=== PATIENT | female | born 1995 | race Hispanic/Latino ===

== ENCOUNTER 2019-04-29 11:13 | Inpatient (IN) | payer MEDICAID, SELFPAY ==
[~2019-04-29 11:13] MED LIST: Bupivacaine/Epinephrine 0.25% 30 ML VIAL ONE
[2019-04-29] MEDS ORDERED: hydrALAZINE 20 MG/ML VIAL SLOW IVP PRN ×2 (12:01→14:43)
[2019-04-29 12:23] VITALS: BMI 26.9
--- NOTE | 2019-04-29 12:39 | PDOC.LDHP ---
Labor and Delivery H&P Chief complaint: contractions, abdominal pain, other (vision change, black spots in vision, headaches over last few days, increased LE edema over the last week) HPI: Marcela Juarez is a 24 year old F at 37.4 wks by LMP c/w 10.3 sono who was sent to L&D from clinic for Pre-E work up. She states that over the last 3 days, she has been experiencing dark spots in vision, headaches (previously did not have headaches), increased LE edema with 6 lb weight gain in the last 2 weeks, and epigastric pain. In the clinic, she had 2 elevated BPs, 156/100 and 150/ 102. SVE in clinic was 0/10/-2/med/ant. She states that she has been having rare contractions over the past three days, maybe 2-3 times per day. Denies any vaginal bleeding, loss of fluid or vaginal discharge. On chart review, she had normal BPs at all of her visits. Of note, she was noted to have 3/6 systolic murmur on exam at office visits and it was recommended that she follow up with Cardiology. She had an appointment but was unable to make that appointment. She denies any other complications with this . Current gestational age (weeks): 37 (37.4) Due date: 05/16/19 Dating criteria: last menstrual period, first trimester ultrasound (10.3 wk) Grav: 1 Para: 0 OB History Details: none Current complications: other (hx of systolic murmur) Abnormal US findings: No Current medications: pre- vitamins Previous surgical history: none Allergies/Adverse Reactions: Allergies Allergy/AdvReac Type Severity Reaction Status Date / Time No Known Allergies Allergy Unverified 04/29/19 13:03 Social history: none - Physical Exam Vital signs reviewed and normal: yes (BP 155/86, HR 55, O2 sat 99% on RA) General: NAD, resting Heart: RRR (unable to appreciate systolic murmur) Lungs: nonlabored breathing Abdomen: gravid Extremeties: no edema FHT: category 1 - Vaginal Exam cm dilated: 0 Effacement: 0% Station: -2 - OB Labs Blood type: O RH: positive Antibody Screen: negative HIV: negative RPR: negative 1 hour GCT: negative (118) Rubella: immune - Assessment L&D Assessment: medically indicated induction gest HTN, r/o Pre-eclampsia - Plan Plan: admit to L&D, labor augmentation if indicated -: Marcela Juarez is a 24 year old F at 37.4 wks by LMP c/w 10.3 sono 1) IUP - normal anatomy US - LMP 08/09/18, VANESA 05/16/2019 - taking PNVs - flu 12/20, tdap 02/19 - 1 hr GTT 118 - neg 3T labs - Cat I strip today - vertex with bedside US today 2) Gestational HTN r/o Pre-eclampsia - 2 elevated BPs at OP clinic, 156/100 repeat was 150/106 - 3 day history of scotomas, increase LE edema and weight gain, epigastric pain and HAs - urine dip at clinic 1+ protein - BP on arrival, 155/86, repeat 135/86 - CBC and CMP wnl - Ur Prot/Cr was 1.57 - no severe range pressure and symptoms resolved, will hold off on Mag at this time - admit to L&D and inducing with cytotec for pre-E without severe feature 3) Systolic heart murmur - not appreciate on exam today - scheduled to see Cards during , unable to make appt Addendum - Attending - Attending Attestation Date/Time: 04/29/19 7569 I personally evaluated the patient and discussed the management with Dr. Walker and the rest of the team. I agree with the History, Examination, Assessment and Plan documented above with any addition or exceptions noted below. Preeclampsia without severe features at >37w. Will proceed with cervical ripening. Monitor for s/s of severe disease.
[2019-04-29 13:12] LABS: #Eosinphils 0.1 thou/uL (0.0-0.7); #Lymphocytes 1.9 thou/uL (1.20-3.40); #Monocytes 0.6 thou/uL (0.11-0.59); #Neutrophils 5.4 thou/uL (1.40-6.50); %Basophils 0.3 % (0.0-1.0); %Eosinophils 0.7 % (0.0-10.0); %Monocytes 7.5 % (0.0-10.0); %Neutrophils 67.6 % (42.0-75.0); Hemoglobin 11.6 g/dL (12.0-16.0); Mean Corpuscular HGB CONC 33.5 g/dL (32.0-36.0); Mean Corpuscular Hemoglobin 30.2 pg (27.0-31.0); Mean Corpuscular Volume 90.3 fL (78.0-98.0); RBC Distribution Width 13.8 % (11.5-14.5); Red Blood Cell (RBC) Count 3.83 mill/uL (4.20-5.40)
[2019-04-29 13:24] LABS: ALT (SGPT) 18 U/L (8-55); AST (SGOT) 18 U/L (5-34); Alkaline Phosphatase 408 U/L (40-110); Anion Gap 11 mmol/L (10-20); BUN (Urea Nitrogen) 9 mg/dL (7.0-18.7); Bilirubin, Total 0.2 mg/dL (0.2-1.2); Calc. Creatinine Clearance 122 mL/min (70-130); Calcium 8.1 mg/dL (7.8-10.44); Carbon Dioxide 20 mmol/L (22-29); Chloride 110 mmol/L (98-107); Estimated GFR-MDRD Greater than 90; Globulin 2.8 g/dL (2.4-3.5); Glucose 67 mg/dL (70-105); Protein, Total 5.8 g/dL (6.0-8.3); Sodium 137 mmol/L (136-145)
[2019-04-29 13:34] LABS: Large Platelets SLIGHT; MDiff Complete? YES; Mean Platelet Volume 11.1 fL (7.4-10.4); Platelet Count 160 thou/uL (130-400); Platelet Morphology Comment Appears Adequate; Polychromasia SLIGHT = 2-3 cells (100X) (0-2/hpf)
[2019-04-29 14:12] LABS: Creatinine, Urine 135.47 mg/dL (47-110)
[2019-04-29] MEDS ORDERED: Promethazine HCl 25 MG/ML VIAL IM PRN (14:43)
[2019-04-29] MEDS ORDERED: Ondansetron PF 4 MG/2 ML Vial IVP PRN (14:43)
[2019-04-29 16:02] LABS: Syphilis Antibody Nonreactive (Nonreactive); Syphilis Antibody Index 0.02 S/CO (<1.00 Non-Reactive)
[2019-04-29 16:03] LABS: HBSAg Index 0.31 S/CO (0-0.99); Hep B Surf Ag Non-Reactive S/CO (NonReactive)
[2019-04-29] MEDS: Misoprostol 100 MCG TAB VAG SCH ×2 (16:15→22:02)
[2019-04-29] MEDS ORDERED: Butorphanol Tartrate 1 MG/ML VIAL SLOW IVP PRN (21:40)
[2019-04-29] MEDS ORDERED: Butorphanol Tartrate 1 MG/ML VIAL ONE (21:41)
--- NOTE | 2019-04-29 22:10 | PDOC.BPN ---
<TimSonal Martin - Last Filed: 04/29/19 22:10> - Brief Progress Note 04/29/20191914 Patient seen at 1915, resting in bed and comfortable. She voices no complaints. Denies any headaches, vision changes, shortness of breath, abdominal pain, vaginal bleeding, loss of fluid. She is breathing through contractions. Contractions are occurring about every 2 minutes. Baseline FHR 135. Patient has had 1 elevated BP of 143/76 in past 4 hours. General Appearance: NAD, well-appearing, comfortable Cardiovascular: RRR, no murmur Lungs: CTAB, no wheezing or rhonchi noted Abdomen: soft, non-tender, bowel sounds present Extremities: no edema, pulses present and equal bilaterally 04/29/2019, 2099 Patient states she is feeling very uncomfortable, having lots of pain with frequent contractions. Will try dose of Stadol at this time. Has had 1 severe range pressure of 178/86 but denies any headache, vision disturbances, SOB, abdominal pain, vaginal bleeding. Will continue to monitor pressures. Cervical check at this time is /-3. 24 year old at 37.4 weeks EGA by 10.3 wk sono admitted for Preeclampsia w/ o severe features: # sIUP - normal anatomy US - LMP 08/09/18, VANESA 05/16/2019 - taking PNVs - flu 12/20, tdap 02/19 - 1 hr GTT 118 - neg 3T labs - Cat I strip today - vertex with bedside US today # Gestational HTN with superimposed Pre-eclampsia - has had 1 severe range BP since admission (178/86), avg BPs here have been in 130s systolic/80s diastolic - CBC and CMP wnl - Ur Prot/Cr was 1.57 - will continue to hold off on Mag at this time, will initiate if pt has a 2nd severe range pressure - admitted to L&D and inducing with cytotec for pre-E without severe features -1st cytotec given at 1615 # Hx of Systolic heart murmur - not appreciated on exam today - scheduled to see Cards during , unable to make appt Dispo: Stable, will continue to monitor vitals for any severe range BPs. If has another severe range pressure will initiate Magnesium IV at that time. Next check in approx. 4 hours. <Bailee Brasher - Last Filed: 04/30/19 23:56> Addendum - Attending - Attending Attestation Date/Time: 04/29/19 8823 I personally evaluated the patient and discussed the management with Dr. Dumont I agree with the History, Examination, Assessment and Plan documented above with any addition or exceptions noted below. Doing well. Remains asymptomatic. Normotensive to mild range. 1 severe range since admission. Proteinuria present. Will hold on mag sulfate at this time. s/p miso x 1. Now with frequent and painful contractions. Still 1 cm. Continue IVF hydration. Monitor for pain. Repeat exam in 2 to 4 hours. Consider adding balloon if patient able to tolerate. Discuss pain control options. Xochilt
[2019-04-30] MEDS ORDERED: Butorphanol Tartrate 1 MG/ML VIAL SLOW IVP PRN (01:49)
[2019-04-30] MEDS: Misoprostol 100 MCG TAB VAG SCH (01:50)
--- NOTE | 2019-04-30 04:12 | PDOC.BPN ---
<Sonal Dumont Martin - Last Filed: 04/30/19 04:12> - Brief Progress Note 04/30/2019, 0130 Patient seen in bed, appears restless and uncomfortable. She voices that she is cramping and having bad pain with contractions. She says Stadol dose helped for a few hours but not hurting again. Denies any headaches, vision changes, shortness of breath, vaginal bleeding, loss of fluid. Contractions are still occurring about every 1-2 minutes. Baseline FHR 140. Patient has had avg BP of 130s-140s systolic/80s diastolic in past 4 hours. General Appearance: NAD, well-appearing, appears uncomfortable 2/2 contractions Cardiovascular: RRR, no murmur Lungs: CTAB, no wheezing or rhonchi noted Abdomen: soft, non-tender, bowel sounds present Extremities: no edema, pulses present and equal bilaterally SVE: 1thick/-3 @ 0130 24 year old at 37.4 weeks EGA by 10.3 wk sono admitted for Preeclampsia w/ o severe features: # sIUP - normal anatomy US - LMP 08/09/18, VANESA 05/16/2019 - taking PNVs - flu 12/20, tdap 02/19 - 1 hr GTT 118 - neg 3T labs - Cat I strip today - vertex with bedside US today - Stadol ordered for pain mgmt # Gestational HTN with superimposed Pre-eclampsia - has had 1 severe range BP since admission (178/86), avg BPs here have been in 130s systolic/80s diastolic - CBC and CMP wnl - Ur Prot/Cr was 1.57 - will continue to hold off on Mag at this time, will initiate if pt has a 2nd severe range pressure - admitted to L&D and inducing with cytotec for pre-E without severe features -1st cytotec given at 1615 -SVE exams: /-3 @ 2099/03 @ 0130 -will consider placing balloon at next check # Hx of Systolic heart murmur - not appreciated on exam today - scheduled to see Cards during , unable to make appt Dispo: Stable, will continue to monitor vitals for any severe range BPs. If has another severe range pressure will initiate Magnesium IV at that time. Next check in approx. 4 hours, will consider placing balloon at that time. <Bailee Brasher - Last Filed: 04/30/19 23:59> Addendum - Attending - Attending Attestation Date/Time: 04/30/19 2535 I personally evaluated the patient and discussed the management with Dr. Dumont I agree with the History, Examination, Assessment and Plan documented above with any addition or exceptions noted below. Remains asymptomatic related to preE. BP remain stable. No other severe range. No need for mag ppx at this time. Continue to monitoring. SVE unchanged. Painful contractions still present. Patient uncomfortable. Discussed pain control options. Discussed Cooks balloon. Cat 1 tracing. Will continue to monitor. Follow up in 1 to 2 hours to discuss patient's decision on balloon. Xochilt
[2019-04-30] MEDS: Lactated Ringer's 1,000 ML IV SCH ×2 (06:00→15:49)
[2019-04-30] MEDS ORDERED: Fentanyl 4 mcg/Bup 0.1% Cadd 100 ML ONE ×2 (06:07→15:23)
[2019-04-30] MEDS ORDERED: NS w/ Oxytocin 10 units 500 ML IV SCH (06:15)
--- NOTE | 2019-04-30 06:22 | PDOC.BPN ---
<Sonal Dumont - Last Filed: 04/30/19 06:19> - Brief Progress Note 04/30/2019, 529 Patient seen in bed, appears comfortable after recently receiving an additional dose of Stadol. Denies any headaches, vision changes, shortness of breath, abdominal pain vaginal bleeding, loss of fluid. Contractions are still occurring about every 2 minutes. Baseline FHR 140. Patient has had avg BP of 130s-140s systolic/80s diastolic in past 4 hours with no severe range pressures General Appearance: NAD, well-appearing, appears uncomfortable with contractions Cardiovascular: RRR, no murmur Lungs: CTAB, no wheezing or rhonchi noted Abdomen: soft, non-tender, bowel sounds present Extremities: no edema, pulses present and equal bilaterally SVE: 1/thick/-3 @ 0530 24 year old at 37.4 weeks EGA by 10.3 wk sono admitted for Preeclampsia w/ o severe features: # sIUP - normal anatomy US - LMP 08/09/18, VANESA 05/16/2019 - taking PNVs - flu 12/20, tdap 02/19 - 1 hr GTT 118 - neg 3T labs - Cat I strip today - vertex with bedside US today - Stadol ordered for pain mgmt - consent obtained for epidural with this check--will place consult for Anesthesia for epidural placement # Gestational HTN with superimposed Pre-eclampsia - has had 1 severe range BP since admission (178/86), avg BPs here have been in 130s systolic/80s diastolic - CBC and CMP wnl - Ur Prot/Cr was 1.57 - will continue to hold off on Mag at this time, will initiate if pt has a 2nd severe range pressure - admitted to L&D and inducing with cytotec for pre-E without severe features -1st cytotec given at 1615 -SVE exams: 1/thick/-3 @ 2100 1/thick/-3 @ 0130 1/thick/-3 @ 0530--balloon placed -will plan to start Pitocin titration after epidural is placed # Hx of Systolic heart murmur - not appreciated on exam today - scheduled to see Cards during , unable to make appt Dispo: Stable, will continue to monitor vitals for any severe range BPs. If has another severe range pressure will initiate Magnesium IV at that time. Desires epidural. Next check in approx. 4 hours, will plan to start Pitocin after epidural is placed. <Bailee Brasher - Last Filed: 05/01/19 00:02> Addendum - Attending - Attending Attestation Date/Time: 04/30/19 0630 I personally evaluated the patient and discussed the management with Dr. Dumont I agree with the History, Examination, Assessment and Plan documented above with any addition or exceptions noted below. Balloon successfully placed. Patient requesting epidural. Repeat exam in 4 hours. Start pitocin once epidural in place. No evidence of progression of preeclampsia. Xochilt
[2019-04-30] MEDS ORDERED: diphenhydrAMINE 50 MG/ML VIAL IVP PRN (06:42)
[2019-04-30] MEDS ORDERED: Lactated Ringer's 500 ML IV PRN (06:42)
[2019-04-30] MEDS ORDERED: Promethazine HCl 25 MG/ML VIAL IM PRN (06:42)
[2019-04-30] MEDS ORDERED: Acetaminophen 325 MG TAB PO PRN (06:42)
[2019-04-30] MEDS ORDERED: Ondansetron PF 4 MG/2 ML Vial IVP PRN (06:42)
[2019-04-30] MEDS ORDERED: Naloxone HCl 0.4 mg/ml Vial IVP PRN ×2 (06:42)
[2019-04-30] MEDS ORDERED: EPHEDRINE 25 MG/5 ML SYRINGE SLOW IVP PRN (06:42)
[2019-04-30] MEDS ORDERED: Communication Order-Pharmacy FS SCH (06:45)
[2019-04-30] MEDS ORDERED: Fentanyl 4 mcg/Bupivacaine 0.1% Cassette 100 ML EPIDURAL SCH (06:45)
--- NOTE | 2019-04-30 12:45 | PDOC.LDPN ---
Labor & Delivery Progress Note - Subjective Subjective: comfortable, no concerns - Objective Vital signs reviewed and normal: yes General: NAD, resting Uterine fundus: non tender SVE: /-3 FHT: category 1 (baseline 130, accels, no deccels, moderate variability) [place] contractions every: 5-6 - Assessment (1) Preeclampsia Code(s): O14.90 - UNSPECIFIED PRE-ECLAMPSIA, UNSPECIFIED TRIMESTER Current Visit: Yes Status: Acute (2) Current Visit: Yes Status: Acute Qualifiers: Weeks of gestation: 37 weeks Qualified Code(s): Z3A.37 - 37 weeks gestation of Plan: pitocin for augmentation -: 24 year old at 37.5wk by 10.3 wk sono admitted for mIOL for Preeclampsia w/ o severe features: #mIOL for preE without severe features - Cat 1 strip, accels, no deccels, moderate variability - /-3 @0530, balloon placed - recheck @ 1100, balloon out, check of -3 - started pit - epidural in place - US by admitting team- vertex #PreE - 1 severe range BP since admission (178/86), others have been 130s/80s - CBC/CMP WNL - Ur Pr/Cr 1.57 - initiate Mag if spies second severe pressure - cont mIOL and monitoring #Hx of Systolic heart murmur - not appreciated on exam today - scheduled to see Cards during , unable to make appt Dispo: Stable, will continue to monitor vitals for any severe range BPs. If has another severe range pressure will initiate Magnesium IV at that time. q4h checks. Cont pit augmentation Addendum - Attending - Attending Attestation Date/Time: 04/30/19 8440 I personally evaluated the patient and discussed the management with Dr. Marinelli. I agree with the History, Examination, Assessment and Plan documented above with any addition or exceptions noted below.
--- NOTE | 2019-04-30 13:28 | PDOC.LDPN ---
Labor & Delivery Progress Note - Subjective Subjective: comfortable, other - Objective Vital signs reviewed and normal: yes Abnormal vital signs: SBPs 150s, no severe range pressures General: NAD, resting Uterine fundus: non tender SVE: 80/-2 FHT: category 1 (baseline 130, accels, no decels, moderate variability), variability present [place] contractions every: 4-5min - Assessment (1) Preeclampsia Code(s): O14.90 - UNSPECIFIED PRE-ECLAMPSIA, UNSPECIFIED TRIMESTER Current Visit: Yes Status: Acute (2) Current Visit: Yes Status: Acute Qualifiers: Weeks of gestation: 37 weeks Qualified Code(s): Z3A.37 - 37 weeks gestation of Plan: pitocin for augmentation -: 24 year old at 37.5wk by 10.3 wk sono admitted for mIOL for Preeclampsia w/ o severe features: #mIOL for preE without severe features - Cat 1 strip, accels, no deccels, moderate variability - /-3 @0530, balloon placed - recheck @ 1100, balloon out, check of /-3 - started pit - Check @ 0120, /-2, cont pit to titrate to contractions - epidural in place - US by admitting team- vertex - plan to recheck in 2hrs with possible AROM at that time #PreE - 1 severe range BP since admission (178/86), current BPs 150s/90s, will cont to monitor closely - CBC/CMP WNL - Ur Pr/Cr 1.57 - initiate Mag if spikes second severe pressure #Hx of Systolic heart murmur - not appreciated on exam today - scheduled to see Cards during , unable to make appt Dispo: Stable, will continue to monitor vitals for any severe range BPs. If has another severe range pressure will initiate Magnesium IV at that time. q2h check. Cont pit augmentation. Possible AROM at next check. Addendum - Attending - Attending Attestation Date/Time: 04/30/19 1686 I personally evaluated the patient and discussed the management with Dr. Marinelli. I agree with the History, Examination, Assessment and Plan documented above with any addition or exceptions noted below.
[2019-04-30] MEDS ORDERED: Magnesium Sulfate 20 gm/500 ml 20 GM/500 ML BAG ONE (15:23)
[2019-04-30] MEDS ORDERED: Calcium Gluc 4.6 MEQ/10 ML (100 MG/ML) SLOW IVP PRN (15:30)
--- NOTE | 2019-04-30 15:35 | PDOC.LDPN ---
Labor & Delivery Progress Note - Subjective Subjective: comfortable, painful contractions - Objective Abnormal vital signs: Spiked second severe range pressure of 162/90. General: NAD, breathing through contractions Uterine fundus: non tender SVE: 100/-1 FHT: category 1 (baseline 130, accels, no deccels, moderate variability) [place] contractions every: 3-4min - Assessment (1) Preeclampsia Code(s): O14.90 - UNSPECIFIED PRE-ECLAMPSIA, UNSPECIFIED TRIMESTER Status: Acute (2) Status: Acute Qualifiers: Weeks of gestation: 37 weeks Qualified Code(s): Z3A.37 - 37 weeks gestation of Plan: continue plan of care, pitocin for augmentation -: 24 year old at 37.5wk by 10.3 wk sono admitted for mIOL for Preeclampsia #mIOL for preE - Cat 1 strip, accels, no deccels, moderate variability, baseline 130 - /-3 @0530, balloon placed - SVE @ 1100, balloon out, check of /-3 - started pit - SVE @ 0120, /-2, cont pit to titrate to contractions - SVE @ 1500, 100/-1 - epidural in place - US by admitting team- vertex - plan to recheck in 1hrs with possible AROM at that time #PreE with severe features - Has now had 2 severe range pressures (178/86 overnight and a recent 162/90) - will start mag now, will cont monitoring closely, will need continued mag 24 hours post delivery with close monitoring - CBC/CMP WNL - Ur Pr/Cr 1.57 #Hx of Systolic heart murmur - not appreciated on exam today - scheduled to see Cards during , unable to make appt Dispo: Stable, now PreE with severe range pressures, starting Mag. Progressing. Recheck in 1hr with possible AROM. Addendum - Attending - Attending Attestation Date/Time: 05/03/19 8180 I personally evaluated the patient and discussed the management with Dr. Marinelli on day of service. I agree with the History, Examination, Assessment and Plan documented above with any addition or exceptions noted below.
[2019-04-30] MEDS ORDERED: Magnesium Sulfate 20 GM/WATER 500 ML BAG IVPB SCH (15:45)
--- NOTE | 2019-04-30 16:57 | PDOC.LDPN ---
Labor & Delivery Progress Note - Subjective Subjective: comfortable, no concerns - Objective Vital signs reviewed and normal: yes (no more severe pressures) General: NAD, resting Uterine fundus: non tender SVE: 8/100/0 FHT: category 1 (accels), variability present (moderate) [place] contractions every: 4-5min AROM: clear fluid - Assessment (1) Preeclampsia Code(s): O14.90 - UNSPECIFIED PRE-ECLAMPSIA, UNSPECIFIED TRIMESTER Status: Acute (2) Status: Acute Qualifiers: Weeks of gestation: 37 weeks Qualified Code(s): Z3A.37 - 37 weeks gestation of Plan: continue plan of care, pitocin for augmentation -: 24 year old at 37.5wk by 10.3 wk sono admitted for mIOL for Preeclampsia #mIOL for preE - Cat 1 strip, accels, no deccels, moderate variability, baseline 130 - 1/thick/-3 @0530, balloon placed - SVE @ 1100, balloon out, check of /-3 - started pit - SVE @ 0120, 80/-2, cont pit to titrate to contractions - SVE @ 1500, 7/100/-1 - SVE @ 1600, 8/100/0 - AROM clear fluid - epidural in place - US by admitting team- vertex - recheck in 1-2 hours, monitoring strip and clinical condition #PreE with severe features - Has now had 2 severe range pressures (178/86 overnight and a recent 162/90) - Now on mag, will cont monitoring closely, will need continued mag 24 hours post delivery with close monitoring - CBC/CMP WNL - Ur Pr/Cr 1.57 #Hx of Systolic heart murmur - not appreciated on exam today - scheduled to see Cards during , unable to make appt Dispo: Stable, now PreE with severe range pressures, on Mag. AROM. Progressing. Addendum - Attending - Attending Attestation Date/Time: 05/03/19 7945 I personally evaluated the patient and discussed the management with Dr. Marinelli on day of service. I agree with the History, Examination, Assessment and Plan documented above with any addition or exceptions noted below.
[2019-04-30] MEDS ORDERED: NS / Oxytocin 40 units/1000ml 1,000 ML ONE (17:12)
[2019-04-30] MEDS ORDERED: NS / Oxytocin 40 units/1000ml 1,000 ML IV PRN (18:22)
--- NOTE | 2019-04-30 18:22 | PDOC.OPDEL ---
OB Operative/Delivery Note Delivery Dr/Surgeon: Yue Marinelli/Curly/Sabrina Pre-Delivery Diagnosis: medically indicated induction Procedure/Post Delivery Dx: spontaneous vaginal delivery Weeks gestation: 37 (37.5) Anesthesia: epidural - Findings A Sex: male - 1 min: 8 - 5 min: 9 - Additional Findings/Plan Placenta delivered: spontaneous Repaired Obstetrical Laceration: vaginal (right) Estimated blood loss: 352cc Compilations/Other Findings: Delivery Physician: Curly Izaguirre Attending: Dr. Bennett Procedure: Spontaneous Vaginal Delivery Anesthesia: Epidural QBL 352cc Pre-op Diagnosis: 1. Term intrauterine in labor 2. PreE with severe features 3. GBS unknown 4. History of systolic murmur, since resolved Post-op Diagnosis: 1. Term intrauterine , delivered 2. same as above Indications: A 24yo presented to L&D for elevated BP, found to have PreE warranting mIOL. Developing preE with severe features during labor. Delivery Note: This is a 24yo @ 37.5wk who delivered a viable M @ 1748. Following an antepartum course complicated by development of preE with severe features features warranting the start of magnesium during labor, a vigorous male was delivered over an intact perineum in the occipitoanterior position. Anterior Shoulder and then remained of the body delivered. No nuchal cord. The head was held down and mouth and nares were bulb suctioned. Cord clamped after delayed cord clamping and cut and cord blood collected. Placenta delivered intact in the [place] presentation with 3 vessel cord. Fundal message was performed and the fundus was firm. The cervix and vagina were inspected and found to have a R vaginal tear and periurethreal tear. The R vaginal tear was then repaired with 3-0 Vicryl in the usual fashion with good approximation and hemostasis. The periurethreal tear was found to be hemostatic. went to nursery in good condition for routine care. Apgars were 8/9. Patient tolerated delivery well. Patient will be monitored in L &D for next 24hours while on Magnesium for PreE with severe features with monitoring of IUP, BP, and clinical status as well as routine care. Post delivery plan: routine recovery Addendum - Attending - Attending Attestation Date/Time: 05/03/19 3637 I was present for the entire delivery and repair.
[2019-04-30] MEDS ORDERED: hydrALAZINE 20 MG/ML VIAL SLOW IVP PRN (18:23)
[2019-04-30] MEDS ORDERED: Adacel (T-DAP) 0.5 ML SYRINGE IM ONE (18:23)
[2019-04-30] MEDS ORDERED: Lanolin Ointment 7 GM TUBE TOP PRN (18:23)
[2019-04-30] MEDS ORDERED: Milk Of Magnesia 30 ML UDCUP PO PRN (18:23)
[2019-04-30] MEDS ORDERED: Bisacodyl 10 MG SUPP PR PRN (18:23)
[2019-04-30] MEDS ORDERED: NS / Oxytocin 40 units/1000ml 1,000 ML IV SCH (18:30)
--- NOTE | 2019-04-30 22:31 | PDOC.BPN ---
<Sonal Dumont - Last Filed: 04/30/19 22:37> - Brief Progress Note S: Patient overall feeling well. Denies any headache, vision changes, shortness of breath, chest pain, abdominal pain, nausea, vomiting. Has had minimal amount of vaginal bleeding after delivery. Complains of some vaginal soreness. O: Vitals: BP 129/82, HR 87, UOP 325 ml in past 4 hours General Appearance: well appearing, resting comfortably in bed Cardiovascular: RRR, no murmurs Lungs: CTAB Abdomen: Soft, nontender, fundus at umbilicus, bowel sounds present Extremities: DTR's 3+ in patellar and 2+ in achilles, no clonus A/P: 24 year old G1 now P1001 on MgSO4 for Pre-Eclampsia #PreE with severe features - No signs/symptoms of Mg toxicity - No severe range or elevated pressures since delivery - Continue Mag for 24 hours post-delivery (~1800 on 05/01) - CBC/CMP WNL - Ur Pr/Cr 1.57 - Provide ice packs for symptomatic relief of vaginal pain/soreness #Hx of Systolic heart murmur - not appreciated on exam today - scheduled to see Cards during , unable to make appt Dispo: Stable, currently on Mag. Will continue to monitor vitals & for signs of Mag toxicity. Next check in approx. 4 hours. <Bailee Brasher - Last Filed: 05/01/19 00:04> Addendum - Attending - Attending Attestation Date/Time: 04/30/19 1291 I personally evaluated the patient and discussed the management with Dr. Dumont I agree with the History, Examination, Assessment and Plan documented above with any addition or exceptions noted below. Doing well. Remains asymptomatic. Tolerating mag sulfate well. Continue at least for 24 hour after delivery. BP stable. Continue to monitor hourly UOP. Repeat exam in 4 hours. Xochilt
[2019-05-01] MEDS: Ibuprofen 800 MG TAB PO SCH ×4 (00:10→23:10)
[2019-05-01] MEDS: Magnesium Sulfate 20 gm/500 ml 20 GM/500 ML BAG IVPB SCH ×2 (00:12→11:18)
--- NOTE | 2019-05-01 04:09 | PDOC.BPN ---
<Sonal Dumont - Last Filed: 05/01/19 04:08> - Brief Progress Note 05/01/2019, 0315 S: Patient overall feeling well. Denies any headache, vision changes, shortness of breath, chest pain, abdominal pain, nausea, vomiting. Has had minimal amount of vaginal bleeding after delivery. O: Vitals: BP 120/74, HR 82, UOP 365 ml in past 4 hours General Appearance: well appearing, resting comfortably in bed Cardiovascular: RRR, no murmurs Lungs: CTAB Abdomen: Soft, nontender, fundus at umbilicus, bowel sounds present Extremities: DTR's 3+ in patellar and 2+ in achilles, no clonus A/P: 24 year old G1 now P1001 on MgSO4 for Pre-Eclampsia #PreE with severe features - No signs/symptoms of Mg toxicity - No severe range or elevated pressures since delivery - Continue Mag for 24 hours post-delivery (~1800 on 05/01) - CBC/CMP WNL - Ur Pr/Cr 1.57 - Provide ice packs for symptomatic relief of vaginal pain/soreness #Hx of Systolic heart murmur - not appreciated on exam today - scheduled to see Cards during , unable to make appt Dispo: Stable, currently on Mag. Will continue to monitor vitals & for signs of Mag toxicity. Next check in approx. 4 hours. <Bailee Brasher - Last Filed: 05/04/19 14:23> Addendum - Attending - Attending Attestation Date/Time: 05/01/19 0619 I personally evaluated the patient and discussed the management with Dr. Dumont I agree with the History, Examination, Assessment and Plan documented above with any addition or exceptions noted below. Agree with current plan. Xochilt
[2019-05-01 06:56] LABS: Hemoglobin 10.8 g/dL (12.0-16.0); Mean Corpuscular HGB CONC 33.6 g/dL (32.0-36.0); Mean Corpuscular Hemoglobin 30.1 pg (27.0-31.0); Mean Corpuscular Volume 89.7 fL (78.0-98.0); Mean Platelet Volume 10.9 fL (7.4-10.4); Platelet Count 106 thou/uL (130-400); White Blood Cell (WBC) Count 13.7 thou/uL (4.8-10.8)
[2019-05-01] MEDS: Lactated Ringer's 1,000 ML IV SCH ×2 (08:03→19:25)
[2019-05-01] MEDS: Docusate Calcium (SURFAK) 240 MG CAP PO SCH ×3 (08:03→23:11)
[2019-05-01] MEDS: Ferrous Sulfate 325 MG TAB PO SCH ×2 (08:04→17:41)
--- NOTE | 2019-05-01 08:40 | PDOC.BPN ---
<Lloyd Marinelli - Last Filed: 05/01/19 08:40> - Brief Progress Note Magnesium Check S: Doing well, no concerns or acute events overnight. No increased WOB, CP, fever/chills, n/v. Pain well-controlled. Bonilla in place. O: BPs 110s-120s/60s-70s General: NAD, resting comfortably HEENT: MMM, EOMI Lungs: CTAB Cards: RRR without murmurs Abd: Soft, appropriately tender, uterus firm at umbilicus Ext: no edema, 2+ reflexes BL UE/LE A/P: 24 year old G1 now P1 who delivered @ 37.5wk on 04/30/19 @ 1525, now on Mg for Pre-Eclampsia with severe features #PreE with severe features - No signs/symptoms of Mg toxicity - No severe range or elevated pressures since delivery - Continue Mag for 24 hours post-delivery (~1800 on 05/01) - CBC/CMP WNL - Ur Pr/Cr 1.57 - Provide ice packs for symptomatic relief of vaginal pain/soreness #Hx of Systolic heart murmur - not appreciated on exam - scheduled to see Cards during , unable to make appt Dispo: Stable, currently on Mag. Will continue to monitor vitals & for signs of Mag toxicity. Next check in approx. 4 hours. <Isaias Bennett - Last Filed: 05/03/19 23:37> Addendum - Attending - Attending Attestation Date/Time: 05/03/19 7057 I personally evaluated the patient and discussed the management with Dr. Marinelli on day of service. I agree with the History, Examination, Assessment and Plan documented above with any addition or exceptions noted below.
--- NOTE | 2019-05-01 09:37 | PDOC.OBPPN ---
FMR OB PN: Subj - Interval History Day: 1 24 y/o @ 37.5 WGA delivered via on 04/30 Pt doing well. Denies H/A, vision changes, SOB, RUQ pain, edema. She reports her abdominal pain is well controlled, but she is having vaginal pain. She is on bedrest while on magnesium, so she has not been ambulating. She is bottle feeding her . FMR OB PN: Obj - Maternal Vital signs: BP: 114/65 HR: 69 RR: 16 Tmax: 98.9 Pox: 99% on RA Wt: 54.431kg - Urine output I&O: 04/30/19 05/01/19 05/02/19 06:59 06:59 06:59 Output Total 433 Balance -433 FMR OB PN: Exam - Physical Exam General: NAD, awake, alert and oriented HEENT: MMM, conjunctiva clear, grossly normal vision, grossly normal hearing Neck: supple, FROM Heart: RRR, no murmurs/rubs/gallops, pulses present, no edema General: CTAB, no respiratory distress, good air movement, no wheezing Abdomen: soft, fundus(cm) (firm below umbilicus) Musculoskeletal: pulses present Neurological: no clonus, no focal deficit Skin: good tugor, capillary refill <2 seconds : appropriately tender Lymphatic: no unusual bruising or bleeding, no purpura Psychiatric: intact recent and remote memory, good judgement and insight FMR OB PN: Data - Labs Lab results: Laboratory Results - last 24 hr 05/01/19 05:40 WBC 13.7 H RBC 3.60 L Hgb 10.8 L Hct 32.3 L MCV 89.7 MCH 30.1 MCHC 33.6 RDW 14.0 Plt Count 106 L MPV 10.9 H FMR OB PN: A/P - Problem List (1) Term delivered Status: Acute Code(s): O80 - ENCOUNTER FOR FULL-TERM UNCOMPLICATED DELIVERY (2) Pre-eclampsia, severe, delivered Status: Acute Code(s): O14.14 - SEVERE PRE-ECLAMPSIA COMPLICATING CHILDBIRTH Disposition: 1. Term , delivered -Cont PNV -Ibuprofen for pain control -Monitor vaginal bleeding -Encouraged breast feeding 2. Pre-eclampsia with severe features Pt on magnesium. No severe range BP's since delivery. UOP 40-125mL/hr. 2+ reflexes bilaterally. -Continue magnesium for 24 hours -Mag checks q4h -Monitor BP's closely -NPO, bedrest Discussion: Date/Time: 05/01/19 2036 This H&P was discussed with Dr. Bennett who agrees with the above documentation and plan. Signature: Lory Rawls MD, PGY-3 Addendum - Attending - Attending Attestation Date/Time: 05/03/19 7824 I personally evaluated the patient and discussed the management with Dr. Rawls on day of service. I agree with the History, Examination, Assessment and Plan documented above with any addition or exceptions noted below.
--- NOTE | 2019-05-01 11:47 | PDOC.BPN ---
- Brief Progress Note S: Doing well, no concerns or questions at this time. Resting comfortably. No increased WOB, CP, fever/chills, n/v. Pain well-controlled. Bonilla in place. O: BPs 116/65, 114/61, 111/63 General: NAD, resting comfortably HEENT: MMM, EOMI Lungs: CTAB Cards: RRR without murmurs Abd: Soft, appropriately tender, uterus firm at umbilicus Ext: no edema, 2+ reflexes BL UE/LE A/P: 24 year old G1 now P1 who delivered @ 37.5wk on 04/30/19 @ 1525, now on Mg for Pre-Eclampsia with severe features #PreE with severe features - No signs/symptoms of Mg toxicity - No severe range or elevated pressures since delivery - Continue Mag for 24 hours post-delivery (~1800 on 05/01) - CBC/CMP WNL - Ur Pr/Cr 1.57 - Provide ice packs for symptomatic relief of vaginal pain/soreness #Hx of Systolic heart murmur - not appreciated on exam - scheduled to see Cards during , unable to make appt Dispo: Stable, currently on Mag. Will continue to monitor vitals & for signs of Mag toxicity. Next check @ approx 1600, will then have been on Mag for approx 24 hours post-.
[2019-05-01] MEDS ORDERED: HYDROcodone/Acetaminophen 5/325 mg Tablet PO SCH (17:30)
[2019-05-01] MEDS: Prenatal Vitamin 1 TAB PO SCH (17:36)
[2019-05-01] MEDS: Misoprostol 100 MCG TAB VAG SCH ×2 (19:30→19:31)
[2019-05-02] MEDS: Ibuprofen 800 MG TAB PO SCH ×4 (06:14→23:03)
--- NOTE | 2019-05-02 08:21 | PDOC.OBPPN ---
FMR OB PN: Subj - Interval History Day: 2 24 y/o @ 37.5 WGA delivered via on 04/30 Pt doing well. Denies H/A, vision changes, SOB, RUQ pain, edema. She reports her abdominal pain is well controlled, but she is having vaginal pain. She has been ambulating without difficulty and tolerating PO. She is bottle feeding her . FMR OB PN: Obj - Maternal Vital signs: BP: 101/55 HR: 63 RR: 16 Tmax: 99.0 Pox: 99% on RA Wt: 54.4kg - Urine output I&O: 05/01/19 05/02/19 05/03/19 06:59 06:59 06:59 Output Total 433 Balance -433 FMR OB PN: Exam - Physical Exam General: NAD, awake, alert and oriented HEENT: MMM, conjunctiva clear, grossly normal vision, grossly normal hearing Neck: supple, FROM Heart: RRR, normal S1/S2, no murmurs/rubs/gallops, pulses present, no edema General: CTAB, no respiratory distress, good air movement, no rales/rhonchi, no wheezing Abdomen: soft, fundus(cm) (firm below umbilicus) Musculoskeletal: pulses present, FROM in all four extremities Skin: good tugor, capillary refill <2 seconds Lymphatic: no unusual bruising or bleeding, no purpura Psychiatric: intact recent and remote memory, good judgement and insight FMR OB PN: A/P - Problem List (1) Term delivered Current Visit: Yes Status: Acute Code(s): O80 - ENCOUNTER FOR FULL-TERM UNCOMPLICATED DELIVERY (2) Pre-eclampsia, severe, delivered Current Visit: Yes Status: Acute Code(s): O14.14 - SEVERE PRE-ECLAMPSIA COMPLICATING CHILDBIRTH Disposition: 1. Term , delivered -Cont PNV -Ibuprofen for pain control -Monitor vaginal bleeding -Encouraged breast feeding 2. Pre-eclampsia with severe features Pt s/p magnesium for 24 hours . No severe range BP's since delivery. -Monitor BP's closely, have been good since being off magnesium Discussion: Date/Time: 05/02/19 0820 This H&P was discussed with Dr. Nash who agrees with the above documentation and plan. Signature: Lory Rawls MD, PGY-3 Addendum - Attending - Attending Attestation Date/Time: 05/02/19 1002 I personally evaluated the patient and discussed the management with Dr. Rawls. I agree with the History, Examination, Assessment and Plan documented above with any addition or exceptions noted below.
[2019-05-02] MEDS: Prenatal Vitamin 1 TAB PO SCH (08:34)
[2019-05-02] MEDS: Docusate Calcium (SURFAK) 240 MG CAP PO SCH ×2 (08:34→23:03)
[2019-05-02] MEDS: Ferrous Sulfate 325 MG TAB PO SCH ×2 (08:35→17:11)
--- NOTE | 2019-05-02 18:13 | PDOC.BPN ---
- Brief Progress Note Pt had a mild range elevation of her BP this PM. Denies any pre-eclampsia symptoms. Will monitor overnight on to ensure pt does not need to be started on an antihypertensive medication. Anticipate d/c home in the AM.
--- NOTE | 2019-05-03 03:37 | PDOC.OBPPN ---
FMR OB PN: Subj - Interval History Day: 3 24 y/o @ 37.5 WGA delivered via on 04/30 Pt doing well. Denies H/A, vision changes, SOB, RUQ pain, edema. She reports her abdominal pain is well controlled, but she is having vaginal pain. She has been ambulating without difficulty and tolerating PO. She is bottle feeding her . FMR OB PN: Obj - Maternal Vital signs: BP: 137/78 HR: 57 RR: 16 Tmax: 99.4 Pox: 98% on RA Wt: 54.4kg - Urine output I&O: 05/01/19 05/02/19 05/03/19 06:59 06:59 06:59 Output Total 433 Balance -433 FMR OB PN: Exam - Physical Exam General: NAD, awake, alert and oriented HEENT: normocephalic and atraumatic, MMM, conjunctiva clear, grossly normal vision, grossly normal hearing Neck: supple, FROM Heart: pulses present, no edema General: no respiratory distress Abdomen: soft, fundus(cm) (firm below umbilicus) Musculoskeletal: pulses present Neurological: no focal deficit Skin: good tugor, capillary refill <2 seconds : appropriately tender Lymphatic: no unusual bruising or bleeding, no purpura Psychiatric: intact recent and remote memory, good judgement and insight FMR OB PN: A/P - Problem List (1) Term delivered Current Visit: Yes Status: Acute Code(s): O80 - ENCOUNTER FOR FULL-TERM UNCOMPLICATED DELIVERY (2) Pre-eclampsia, severe, delivered Current Visit: Yes Status: Acute Code(s): O14.14 - SEVERE PRE-ECLAMPSIA COMPLICATING CHILDBIRTH Disposition: 1. Term , delivered -Cont PNV -Ibuprofen for pain control -Monitor vaginal bleeding -Encouraged breast feeding 2. Pre-eclampsia with severe features Pt s/p magnesium for 24 hours . No severe range BP's since delivery. -Monitor BP's closely, had one mild range BP yesterday Will d/c home and f/u at [facility] in 1 week for BP check Discussion: Date/Time: 05/03/19 0337 This H&P was discussed with Dr. Nash who agrees with the above documentation and plan. Signature: Lory Rawls MD, PGY-3 Addendum - Attending - Attending Attestation Date/Time: 05/03/19 0941 I personally evaluated the patient and discussed the management with Dr. Rawls. I agree with the History, Examination, Assessment and Plan documented above with any addition or exceptions noted below.
[2019-05-03] MEDS: Ibuprofen 800 MG TAB PO SCH ×2 (06:05→08:30)
[2019-05-03] MEDS: Ferrous Sulfate 325 MG TAB PO SCH (07:47)
[2019-05-03] MEDS: Prenatal Vitamin 1 TAB PO SCH (08:30)
[2019-05-03] MEDS: Docusate Calcium (SURFAK) 240 MG CAP PO SCH (08:30)
[2019-05-03 12:10] VITALS: BP 146/72; TEMP 99
== END 2019-05-03 12:48 | disposition home or self-care (01) | DRG 807 ==
LOC: L&D/OP 11:13 → L&D 20:22 → 3SW 05-01 18:43
PROVIDERS: ADMIT Emergency Medicine; ATTEND Emergency Medicine
PROC: 10E0XZZ Delivery of Products of Conception, External Approach (ICD-10-PCS; principal; 2019-04-29)
PROC: 0KQM0ZZ Repair Perineum Muscle, Open Approach (ICD-10-PCS; 2019-04-29)
PROC: 3E033VJ Introduction of Other Hormone into Peripheral Vein, Percutaneous Approach (ICD-10-PCS; 2019-04-29)
PROC: 0U7C7ZZ Dilation of Cervix, Via Natural or Artificial Opening (ICD-10-PCS; 2019-04-29)
DX: O13.4 Gestational [pregnancy-induced] hypertension without significant proteinuria, complicating childbirth (principal); Z37.0 Single live birth; O14.14 Severe pre-eclampsia complicating childbirth; Z3A.37 37 weeks gestation of pregnancy; O71.4 Obstetric high vaginal laceration alone
CPT/HCPCS: 36415; 51702; 80053; 82570; 84156; 85025; 85027; 86780; 86850; 86900; 86901; 87340; 99285; J0595; J2590; J3475